=== PATIENT | female | born 1955 | race Asian ===

== ENCOUNTER 2022-09-09 01:18 | Emergency (ER) | payer BC ==
[~2022-09-09] VITALS: Ht 165.1 cm; Wt 59.9 kg
[2022-09-09 01:27] VITALS: BP_SYST 171
--- NOTE | 2022-09-09 01:31 | NUR ---
Patient to ER bed 07 to gown for evaluation. Side rails up. Report given to AMY MCKENNA
--- NOTE | 2022-09-09 01:35 | NUR ---
ER at bedside examining patient.
[2022-09-09] MEDS ORDERED: ONDANSETRON HCL 4 MG/2 ML VIAL IVP ONE (01:45)
[2022-09-09] MEDS ORDERED: NACL 0.9% 1,000 ML IV ONE (01:45)
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
--- NOTE | 2022-09-09 01:45 | NUR ---
Pt refused zofran. Pt states she has not been nauseated.
[2022-09-09] MEDS ORDERED: ACETAMINOPHEN 500 MG TABLET PO ONE (02:00)
[2022-09-09 02:11] LABS: BILIRUBIN,URINE NEGATIVE (NEGATIVE); BLOOD, URINE NEGATIVE (NEGATIVE); CLARITY/URINE CLEAR (CLEAR); COLOR,URINE YELLOW (YELLOW); GLUCOSE,URINE NEGATIVE (NEGATIVE); KETONES,URINE NEGATIVE (NEGATIVE); LEUKOCYTE ESTERASE ,URINE TRACE (NEGATIVE); NITRITE, URINE NEGATIVE (NEGATIVE); PROTEIN URINE NEGATIVE (NEGATIVE); UROBILINOGEN,URINE 0.2 (0.2-1.0)
[2022-09-09 02:37] LABS: ALANINE AMINOTRANSFERASE 57 U/L (12-78); ALBUMIN 3.7 g/dL (3.4-4.8); ANION GAP 6 (5-15); ASPARTATE AMINOTRANSFERASE 32 U/L (10-37); CALCIUM 8.3 mg/dL (8.4-11.0); CHLORIDE 101 mmol/L (98-107); CREATININE 0.62 mg/dL (0.55-1.30); GFR AFRICAN AMERICAN 123 mL/min (>90); GLUCOSE 177 mg/dL (70-99); TOTAL BILIRUBIN 0.8 mg/dL (0.0-1.0); UREA NITROGEN, BLOOD 10 mg/dL (8-21)
[2022-09-09 02:40] LABS: LIPASE 58 U/L (73-393)
[2022-09-09 02:46] LABS: BASOPHILS # (AUTO) 0.1 K/uL (0.0-0.2); BASOPHILS % (AUTO) 0.8 % (0.0-2.0); EOSINOPHILS # (AUTO) 0.2 K/uL (0.0-0.4); HEMATOCRIT 36.6 % (36-48); HEMOGLOBIN 12.4 g/dL (12.0-16.0); LYMPHOCYTES # (AUTO) 1.1 K/uL (1.0-5.5); LYMPHOCYTES % (AUTO) 13.4 % (20.5-51.5); MEAN CORPUSCULAR HEMOGLOBIN 29 pg (27-31); MEAN CORPUSCULAR HGB CONC 34 % (32-36); MEAN CORPUSCULAR VOLUME 86 fL (79.0-98.0); MONOCYTES # (AUTO) 0.5 K/uL (0.0-1.0); MONOCYTES % (AUTO) 6.2 % (1.7-9.3); NEUTROPHILS # (AUTO) 6.2 K/uL (1.8-7.7); NEUTROPHILS % (AUTO) 77.6 % (40.0-70.0); PLATELET COUNT (AUTO) 284 K/uL (130-430); RED BLOOD CELL COUNT(AUTO) 4.25 MIL/uL (4.2-6.2); RED CELL DISTRIBUTION WIDTH 13.1 % (9.0-15.0)
[2022-09-09 02:55] LABS: BACTERIA,URINE None Seen /HPF (None Seen); RBC,URINE 0-3 /HPF (0-3); WBC,URINE 0-3 /HPF (0-3)
--- NOTE | 2022-09-09 03:45 | NUR ---
Pt resting with eyes closed, no s/s of discomfort noted.
[2022-09-09] MEDS ORDERED: DEXTROMET/BENZOCAIN/MENTHOL SF 1 LOZENGE MM ONE (05:00)
[2022-09-09] MEDS ORDERED: ALBMDI INH (05:13)
[2022-09-09] MEDS ORDERED: ACET-2634 PO (05:13)
[2022-09-09] MEDS ORDERED: BENZ100C92 PO (05:13)
[2022-09-09] MEDS ORDERED: guaiFENesin 200 MG/CODEINE 20 MG/ 10 ML UDC PO ONE (05:30)
[2022-09-09 05:58] VITALS: BP_SYST 113
--- NOTE | 2022-09-09 05:58 | NUR ---
Patient given written and verbal discharge instructions and verbalizes understanding. ER Dr Eli discussed with patient the results and treatment provided. Patient in stable condition. ID arm band removed. IV catheter removed intact and dressing applied, no active bleeding. Rx of Tylenol, Benzonatate, and Ventolin given. Patient educated on pain management and to follow up with PMD. Pain Scale 0/10. Opportunity for questions provided and answered. Medication side effect fact sheet provided.
[2022-09-09 06:44] LABS: CKMB RELATIVE INDEX 1.3 (0.0-2.9); CREATINE KINASE MB 3.6 ng/mL (0-3.6)
== END 2022-09-09 01:31 | disposition home or self-care (01) ==
LOC: SED 01:18
DX: J06.9 Acute upper respiratory infection, unspecified (principal); R07.9 Chest pain, unspecified; R05.9 Cough, unspecified; R53.1 Weakness; R06.02 Shortness of breath; E78.5 Hyperlipidemia, unspecified; I10 Essential (primary) hypertension; Z79.899 Other long term (current) drug therapy; Z20.822 Contact with and (suspected) exposure to COVID-19
CPT/HCPCS: 99285; 96360; 71045; 87426; 80053; 81000; 82550; 82553; 83690; 85025; 85379; 84484; 36415; 93005; 87804 ×2; J7030

== ENCOUNTER 2024-01-14 09:47 | Emergency (ER) | payer BC, OTHER ==
[~2024-01-14] VITALS: Ht 165.1 cm; Wt 55.3 kg
[~2024-01-14 09:47] MED LIST: ACET-2634 PO; ALBMDI INH; BENZ100C92 PO
[2024-01-14 09:54] VITALS: BP_SYST 159; PULSE 55; RESP 15; TEMP 97.2; O2SAT 98
[2024-01-14 10:12] LABS: BASOPHILS % (AUTO) 0.9 % (0.0-2.0); EOSINOPHILS % (AUTO) 0.6 % (0.0-4.0); HEMOGLOBIN 14.2 g/dL (12.0-16.0); LYMPHOCYTES # (AUTO) 1.4 K/uL (1.0-5.5); LYMPHOCYTES % (AUTO) 29.4 % (20.5-51.5); MEAN CORPUSCULAR HEMOGLOBIN 29 pg (27-31); MEAN CORPUSCULAR HGB CONC 34 % (32-36); MEAN CORPUSCULAR VOLUME 86 fL (79.0-98.0); MONOCYTES # (AUTO) 0.2 K/uL (0.0-1.0); MONOCYTES % (AUTO) 4.5 % (1.7-9.3); NEUTROPHILS # (AUTO) 3.1 K/uL (1.8-7.7); NEUTROPHILS % (AUTO) 64.6 % (40.0-70.0); PLATELET COUNT (AUTO) 339 K/uL (130-430); RED BLOOD CELL COUNT(AUTO) 4.91 MIL/uL (4.2-6.2); RED CELL DISTRIBUTION WIDTH 13.2 % (9.0-15.0); WHITE BLOOD COUNT (AUTO) 4.8 K/uL (4.8-10.8)
[2024-01-14] MEDS: METOCLOPRAMIDE HCL 10 MG/2 ML VIAL IVP ONE (10:26)
[2024-01-14] MEDS: MECLIZINE HCL 25 MG TABLET (ANITVERT) PO ONE (10:30)
[2024-01-14 10:55] LABS: ALANINE AMINOTRANSFERASE 57 U/L (12-78); ALBUMIN 4.3 g/dL (3.4-4.8); ANION GAP 7 (5-15); ASPARTATE AMINOTRANSFERASE 37 U/L (10-37); BILIRUBIN,DIRECT 0.2 mg/dL (0.0-0.3); CALCIUM 9.1 mg/dL (8.4-11.0); CARBON DIOXIDE 28 mmol/L (23-29); CHLORIDE 103 mmol/L (98-107); CREATINE KINASE, TOTAL 98 U/L (26-192); CREATININE 0.73 mg/dL (0.55-1.30); GFR AFRICAN AMERICAN 102 mL/min (>90); GLUCOSE 149 mg/dL (74-106); SODIUM SERUM 138 mmol/L (136-145); TOTAL BILIRUBIN 1.1 mg/dL (0.0-1.0); TOTAL PROTEIN, SERUM 7.8 g/dL (6.4-8.3); UREA NITROGEN, BLOOD 9 mg/dL (8-21)
[2024-01-14 10:57] LABS: GFR NON AFRICAN-AMERICAN 84 mL/min (>90)
[2024-01-14] MEDS ORDERED: MECL-261 PO (11:42)
[2024-01-14 12:22] VITALS: BP_SYST 110; PULSE 60; RESP 18; TEMP 97; O2SAT 97
== END 2024-01-14 12:29 | disposition home or self-care (01) ==
LOC: SED 09:47
DX: R55 Syncope and collapse (principal); R53.1 Weakness; R42 Dizziness and giddiness; R06.02 Shortness of breath; Z79.899 Other long term (current) drug therapy; Z79.2 Long term (current) use of antibiotics
CPT/HCPCS: 99285; 96374; 70450; 71045; 80076; 80048; 82550; 85025; 85610; 85730; 84484; 36415; 93005; J2765; J8597